=== PATIENT | male | born 1935 ===

== ENCOUNTER 2016-02-16 09:00 | Outpatient (RCR) | payer OTHER ==
[~2016-02-16 09:00] MED LIST: DIOVAN40 MG PO; FLOMAX0.4 MG PO; LIPITOR10 MG PO; TENORMIN25 MG PO; [UNRECOGNIZED DRUG - REMARK]
== END 2016-03-07 | disposition home or self-care (01) ==
LOC: PTY 09:00
DX: M25.551 Pain in right hip (principal); M70.61 Trochanteric bursitis, right hip
CPT/HCPCS: 97035; 97110; 97140; G0283

== ENCOUNTER 2016-03-10 09:00 | Outpatient (RCR) | payer OTHER | END 2016-04-04 | disposition home or self-care (01) | LOC: PTY 09:00 | DX: M25.551 Pain in right hip (principal); M70.61 Trochanteric bursitis, right hip | CPT/HCPCS: 97035; 97110; G0283 ==

== ENCOUNTER 2016-08-21 13:00 | Outpatient (RCR) | payer OTHER | END 2016-09-04 | disposition home or self-care (01) | LOC: PTY 13:00 | DX: G95.9 Disease of spinal cord, unspecified (principal); M48.02 Spinal stenosis, cervical region; E11.9 Type 2 diabetes mellitus without complications | CPT/HCPCS: 97110; 97140; 97162; G0283 ==

== ENCOUNTER 2016-09-26 08:35 | Outpatient (RCR) | payer OTHER | END 2016-10-05 | disposition home or self-care (01) | LOC: PTY 08:35 | DX: G95.9 Disease of spinal cord, unspecified (principal); M48.02 Spinal stenosis, cervical region | CPT/HCPCS: 97110; 97140; G0283 ==

== ENCOUNTER 2016-10-31 12:55 | Outpatient (RCR) | payer OTHER | END 2016-11-04 | disposition home or self-care (01) | LOC: PTY 12:55 | DX: G95.9 Disease of spinal cord, unspecified (principal); M48.02 Spinal stenosis, cervical region; Z91.81 History of falling; G40.909 Epilepsy, unspecified, not intractable, without status epilepticus; E11.9 Type 2 diabetes mellitus without complications; M19.90 Unspecified osteoarthritis, unspecified site; F32.9 Major depressive disorder, single episode, unspecified | CPT/HCPCS: 97110; 97140; G0283 ==

== ENCOUNTER 2016-11-14 09:06 | Outpatient (RCR) | payer OTHER | END 2016-12-05 | disposition home or self-care (01) | LOC: PTY 09:06 | PROVIDERS: ATTEND Internal Medicine | DX: M48.02 Spinal stenosis, cervical region (principal); G95.9 Disease of spinal cord, unspecified | CPT/HCPCS: 97110; 97140; G0283 ==